=== PATIENT | male | born 1980 | race American Indian/Alaskan Native ===

== ENCOUNTER 2019-11-16 16:46 | Emergency (ER) | payer SELFPAY ==
[2019-11-16 16:55] VITALS: BP 135/80
--- NOTE | 2019-11-16 18:22 | XRay Report ---
CHEST 2 VIEWS INDICATION / CLINICAL INFORMATION: sputum prod cough. COMPARISON: None available. FINDINGS: SUPPORT DEVICES: None. HEART / MEDIASTINUM: No significant abnormality. LUNGS / PLEURA: No significant pulmonary or pleural abnormality. No pneumothorax. ADDITIONAL FINDINGS: No significant additional findings. IMPRESSION: 1. No acute findings. Signer Name: Ryan Iglesias MD Signed: 11/16/2019 6:18 PM Workstation Name: [id number]
[2019-11-16] MEDS ORDERED: guaiFENesin 100 MG/5 ML ORAL LIQD PO ONE (18:50)
[2019-11-16] MEDS ORDERED: predniSONE 20 MG TAB PO ONE (18:50)
--- NOTE | 2019-11-16 18:59 | Emergency Department Report ---
Minor Respiratory - HPI Chief Complaint: Adult Asthma Stated Complaint: ASTHMA, COUGH Time Seen by Provider: 11/16/19 17:32 Duration: 2 Days Severity: mild Minor Respiratory: Yes Able to Tolerate Fluids, Yes Cough, No Rhinorrhea, No Sore Throat, No Ear Pain, No Sick Contacts, No Hemoptysis, No Chest Pain, No Shortness of Breath, No Fever Other History: Patient presents to the ED 39-year-old male with a history of asthma presents with cough. Patient states that he called his doctor in [place] where he is originally from and was told to come to the ER to be seen by att ending physician. He denies shortness of breath, fever or any other symptoms. ED Review of Systems ROS: Stated complaint: ASTHMA, COUGH Other details as noted in HPI Comment: All other systems reviewed and negative ED Past Medical Hx - Past Medical History Previous Medical History?: Yes Hx Asthma: Yes - Surgical History Past Surgical History?: No - Social History Smoking Status: Never Smoker Substance Use Type: None Minor Respiratory Exam - Exam General: Vital signs noted. No distress. Alert and acting appropriately. HEENT: Yes Moist Mucous Membranes, No Pharyngeal Erythema, No Pharyngeal Exudates, No Rhinorrhea, No Conjuctival Injection, No Frontal Tenderness, No Maxillary Tenderness Ear: Neither TM Bulge, Neither TM Erythema, Neither EAC Pain, Neither EAC Discharge Neck: Yes Supple, No Adenopathy Lungs: Yes Good Air Exchange, No Wheezes, No Ronchi, No Stridor, No Cough, No Labored Respirations, No Retractions, No Use of Accessory Muscles, No Other Abnormal Lung Sounds Heart: Yes Regular, No Murmur Abdomen: Yes Normal Bowel Sounds, No Tenderness, No Peritoneal Signs Skin: No Rash, No Edema Neurologic: Alert and oriented, no deficits. Musculoskeletal: Unremarkable. ED Course Vital Signs 11/16/19 11/16/19 16:54 18:24 Temperature 98.5 F Pulse Rate 79 Respiratory 20 17 Rate Blood Pressure 135/80 O2 Sat by Pulse 96 Oximetry ED Medical Decision Making - Radiology Data Radiology results: report reviewed, image reviewed CHEST 2 VIEWS INDICATION / CLINICAL INFORMATION: sputum prod cough. COMPARISON: None available. FINDINGS: SUPPORT DEVICES: None. HEART / MEDIASTINUM: No significant abnormality. LUNGS / PLEURA: No significant pulmonary or pleural abnormality. No pneumot horax. ADDITIONAL FINDINGS: No significant additional findings. IMPRESSION: 1. No acute findings. Signer Name: Ryan Iglesias MD Signed: 11/16/2019 6:18 PM Workstation Name: [id number] Transcribed By: NITIN Dictated By: Ryan Iglesias MD Electronically Authenticated By: Rayn Iglesias MD Signed Date/Time: 11/16/191817 - Medical Decision Making 39-year-old male who presented with cough most likely secondary to asthma. Patient initially stated that he is doctor for mild told him to see an attending doctor. I explained to patient that I am a physician contract administrative assistant a licensed practitioner in the [facility] and capable of seeking care of his visit. Chest x-ray ordered. Chest x-ray shows no acute findings. Patient had no respiratory distress in the ED. No wheezing heard upon examination. Prior to dispense her medication patient left the emergency room signing the AMA form with the nurse. Vital signs are normal patient satting 96% on oxygen room air. There was no fever, blood pressure normal. Critical care attestation.: If time is entered above; I have spent that time in minutes in the direct care of this critically ill patient, excluding procedure time. ED Disposition Clinical Impression: Bronchitis, Asthmatic bronchitis Disposition: DC-07 LEFT AGAINST MED ADVICE Is pt being admited?: No Does the pt Need Aspirin: No Condition: Stable Instructions: Chronic Bronchitis (ED) Time of Disposition: 19:02
== END 2019-11-16 18:53 | disposition left against medical advice (07) ==
LOC: ED 16:46
DX: J45.909 Unspecified asthma, uncomplicated (principal)
CPT/HCPCS: 71046